=== PATIENT | female | born 1965 | race Caucasian/White ===

== ENCOUNTER 2019-05-16 19:24 | Emergency (ER) | payer OTHER ==
[~2019-05-16] VITALS: Ht 162.6 cm; Wt 77.1 kg
[2019-05-16 19:25] VITALS: BP 140/89
--- NOTE | 2019-05-16 19:25 | NUR ---
TO BED # 11 AMBULATORY
[2019-05-16] MEDS ORDERED: NACL 0.9% 500 ML IV ONE (19:40)
[2019-05-16] MEDS ORDERED: ASPIRIN 81 MG TAB.CHEW PO ONE (19:40)
[2019-05-16] MEDS ORDERED: LORazepam 2 MG/ML VIAL IVP ONE (19:40)
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
[2019-05-16] MEDS ORDERED: LORazepam 1 MG TAB PO ONE (20:15)
[2019-05-16 20:24] LABS: BASOPHILS % (AUTO) 0.6 % (0.0-2.0); EOSINOPHILS # (AUTO) 0.2 K/uL (0-0.4); EOSINOPHILS % (AUTO) 3.3 % (0.0-4.0); HEMOGLOBIN 12.9 g/dL (12.0-16.0); LYMPHOCYTES % (AUTO) 48.4 % (20.5-51.1); MEAN CORPUSCULAR HEMOGLOBIN 33 pg (27-31); MEAN CORPUSCULAR HGB CONC 34 g/dL (33-37); MONOCYTES # (AUTO) 0.3 K/uL (0.8-1.0); MONOCYTES % (AUTO) 5.5 % (1.7-9.3); NEUTROPHILS # (AUTO) 2.6 K/uL (1.8-7.7); NEUTROPHILS % (AUTO) 42.2 % (42.2-75.2); PLATELET COUNT (AUTO) 189 K/uL (140-450); RED BLOOD CELL COUNT(AUTO) 3.95 MIL/uL (4.20-5.40); RED CELL DISTRIBUTION WIDTH 13.3 % (11.6-13.7); WHITE BLOOD COUNT (AUTO) 6.2 K/uL (4.8-10.8)
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
[2019-05-16 20:36] LABS: ANION GAP 11.3 (8-16); CARBON DIOXIDE 27.3 mmol/L (21-32); CREATININE 0.7 mg/dL (0.6-1.3); POTASSIUM 3.6 mmol/L (3.5-5.1)
[2019-05-16 20:44] LABS: ALBUMIN 3.6 g/dL (3.4-5.0); TOTAL BILIRUBIN 0.3 mg/dL (0.0-1.0)
--- NOTE | 2019-05-16 20:50 | NUR ---
Patient discharged with v/s stable. Written and verbal after care instructions ABOUT ANXIETY AND PANIC ATTACKS given and explained. Patient verbalized understanding. Ambulatory with steady gait. All questions addressed prior to discharge. Advised to follow up with PMD.
[2019-05-16 21:01] VITALS: BP 111/57
== END 2019-05-16 20:50 | disposition home or self-care (01) ==
LOC: MED 19:24
DX: F41.9 Anxiety disorder, unspecified (principal); J45.909 Unspecified asthma, uncomplicated
CPT/HCPCS: 36415; 71045; 80053; 84484; 85025; 93005; 99284; Q0092; J2060

== ENCOUNTER 2019-06-01 18:31 | Emergency (ER) | payer MEDICAID, OTHER ==
[~2019-06-01] VITALS: Ht 162.6 cm; Wt 76.7 kg
[2019-06-01 18:53] VITALS: BP 117/76
--- NOTE | 2019-06-01 18:55 | NUR ---
PT PLACED IN BED 2.
--- NOTE | 2019-06-01 18:59 | NUR ---
54 Y/O F C/O CHOKING ON A PIECE OF CHICKEN WHILE EATING. PT HAD THE [place] DONE AND WAS ABLE TO GET THE PIECE OF CHICKEN OUT. PT STATES HER THROAT IS SORE. PT IS CRYING, AND STATES SHE HAS BEEN VERY UPSET FOR THE PAST FEW DAYS. MOTHER AT BEDSIDE STATES PATIENT HAS BEEN VERY EMOTIONAL THIS LAST WEEK. PT POSITIONED FOR COMFORT, BED RAIL X1 IN PLACE. NKA MEDHX: NONE
--- NOTE | 2019-06-01 19:08 | NUR ---
REPORT GIVEN TO FLAVIA RICHARDSON. CHANGE OF SHIFT.
[2019-06-01] MEDS ORDERED: KETOROLAC 30 MG/ML VIAL IM ONE (19:20)
[2019-06-01] MEDS ORDERED: diphenhydrAMINE 50 MG/ML VIAL IM ONE (19:20)
[2019-06-01 19:45] VITALS: BP 110/75
--- NOTE | 2019-06-01 19:45 | NUR ---
Patient discharged with v/s stable. Written and verbal after care instructions given and explained. Patient verbalized understanding. Ambulatory with steady gait. All questions addressed prior to discharge. Advised to follow up with PMD.
== END 2019-06-01 19:45 | disposition home or self-care (01) ==
LOC: MED 18:31
DX: F41.9 Anxiety disorder, unspecified (principal); J45.909 Unspecified asthma, uncomplicated
CPT/HCPCS: 96372; 99283; J1200; J1885

== ENCOUNTER 2019-06-18 01:17 | Emergency (ER) | payer MEDICAID ==
[~2019-06-18] VITALS: Ht 162.6 cm; Wt 81.6 kg
[2019-06-18 01:20] VITALS: BP 118/55
--- NOTE | 2019-06-18 01:23 | NUR ---
TO LOBBY A/W BED AMBULATORY
--- NOTE | 2019-06-18 01:28 | NUR ---
AMBULATES TO BED 12 WITH STEADY GAIT.
[2019-06-18] MEDS ORDERED: IBUPROFEN 600 MG TAB PO ONE (01:55)
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
--- NOTE | 2019-06-18 02:08 | NUR ---
MEDICATED WITH 600 MG PO IBUPROFEN FOR 12/24 PLEURITIC CHEST TIGHTNESS.
--- NOTE | 2019-06-18 02:16 | NUR ---
XRAY AT BEDSIDE.
--- NOTE | 2019-06-18 02:38 | NUR ---
PT RESTING WITH EYES CLOSED. DEEP RESPIRATIONS AND SNORING HEARD. AROUSABLE TO VERBAL STIMULI. REPORTS PAIN RELIEF; 08/24.
[2019-06-18 03:50] VITALS: BP 120/69
--- NOTE | 2019-06-18 03:53 | NUR ---
Patient discharged with v/s stable. Written and verbal after care instructions given and explained. Patient alert, oriented and verbalized understanding of instructions. Ambulatory with steady gait. All questions addressed prior to discharge. ID band removed. Patient advised to follow up with PMD. Rx of Ibuprofen 600, Promethazine cough syrup, and Albuterol Inh given. Patient educated on indication of medication including possible reaction and side effects. Opportunity to ask questions provided and answered.
== END 2019-06-18 03:53 | disposition home or self-care (01) ==
LOC: MED 01:17
DX: J40 Bronchitis, not specified as acute or chronic (principal); G89.29 Other chronic pain; F17.210 Nicotine dependence, cigarettes, uncomplicated
CPT/HCPCS: 71045; 87804; 99284; Q0092

== ENCOUNTER 2020-04-15 12:30 | Emergency (ER) | payer MEDICAID ==
[~2020-04-15] VITALS: Ht 162.6 cm; Wt 83.0 kg
[2020-04-15 12:33] VITALS: BP 116/70
--- NOTE | 2020-04-15 12:43 | NUR ---
w/c to bed 01
[2020-04-15] MEDS ORDERED: HYDROcodone/APAP 5/325 MG 1 TAB TAB PO ONE (12:50)
[2020-04-15] MEDS ORDERED: KETOROLAC 30 MG/ML VIAL IM ONE (12:50)
--- NOTE | 2020-04-15 12:50 | NUR ---
55 YEAR OLD FEMALE COMPLAINS OF LOWER BACK PAIN SINCE YESTERDAY. PT STATES THAT SHE WAS SCRUBING THE FLOOR ON HER KNEES AND HAD PAIN EVER SINCE. PT DENIES TRAUMA, HAS DIFFICULTY WITH AMBULATION AND NEEDS WHEELCHAIR ASSISTANCE. PT AOX4, BREATHING EVEN AND UNLABORED, SKIN WARM AND DRY. BED IN LOWEST POSITION, LOCKED, BED RAIL UPX1. PMH - ASTHMA ALLERGIES - NKA
--- NOTE | 2020-04-15 13:56 | NUR ---
PT ALERT AND AWAKE, BREATHING EVEN AND UNLABORED. NO DISTRESS NOTED. PT STATES FEELS BETTER
[2020-04-15 15:48] VITALS: BP 111/68
--- NOTE | 2020-04-15 15:51 | NUR ---
Patient discharged with v/s stable. Written and verbal after care instructions for backpain given and explained. Patient alert, oriented and verbalized understanding of instructions. Wheel Chair Assisted with to car. All questions addressed prior to discharge. ID band removed. Patient advised to follow up with PMD. Rx of Quilcene and Ibuprofen given. Patient educated on indication of medication including possible reaction and side effects. Opportunity to ask questions provided and answered. Patient to be picked up by daughter.
== END 2020-04-15 15:51 | disposition home or self-care (01) ==
LOC: MED 12:30
DX: M54.5 Low back pain (principal); J45.909 Unspecified asthma, uncomplicated
CPT/HCPCS: 96372; 99283; J1885

== ENCOUNTER 2023-02-20 00:40 | Emergency (ER) | payer BC, MEDICAID ==
[~2023-02-20] VITALS: Ht 162.6 cm; Wt 84.8 kg
[2023-02-20 00:48] VITALS: BP 136/87; PULSE 98; RESP 17; TEMP 97.5; O2SAT 99
[2023-02-20 02:38] VITALS: TEMP 97.5
[2023-02-20] MEDS ORDERED: ATI.5 PO ×2 (03:28→04:12)
[2023-02-20 04:05] VITALS: BP 111/59; PULSE 94; RESP 12; O2SAT 98
== END 2023-02-20 04:05 | disposition home or self-care (01) ==
LOC: MED 00:40
DX: R07.9 Chest pain, unspecified (principal); F41.9 Anxiety disorder, unspecified; J45.909 Unspecified asthma, uncomplicated; Z79.899 Other long term (current) drug therapy
CPT/HCPCS: 71045; 93005; 99283; Q0092